=== PATIENT | male | born 1950 | race Asian ===

== ENCOUNTER 2019-12-06 18:37 | Emergency (ER) | payer OTHER, MEDICAID ==
[~2019-12-06] VITALS: Ht 162.6 cm; Wt 69.4 kg
[~2019-12-06 18:37] MED LIST: IPRATROPIUM BROM3 M2 INH; LAC PO; TYL325 PO; ZOFI IV; ZOS3PM IV
[2019-12-06 18:49] VITALS: BP 128/94; Ht 162.6 cm; Wt 69.4 kg
== END 2019-12-06 21:44 | disposition home or self-care (01) ==
LOC: ED 18:37
DX: S61.212A Laceration without foreign body of right middle finger without damage to nail, initial encounter (principal); W26.8XXA Contact with other sharp object(s), not elsewhere classified, initial encounter; Y93.89 Activity, other specified; Y92.89 Other specified places as the place of occurrence of the external cause; Y99.8 Other external cause status
CPT/HCPCS: 90715; J2001